=== PATIENT | female | born 1950 | race Caucasian/White ===

== ENCOUNTER 2018-03-21 12:30 | Emergency (ER) | payer OTHER, MEDICARE, SELFPAY ==
[2018-03-21 12:41] VITALS: BP 135/77; PULSE 64; RESP 18; TEMP 36.3; O2SAT 96; BMI 22.1
== END 2018-03-21 14:59 | disposition left against medical advice (07) ==
PROVIDERS: Emergency Provider Nurse Practitioner Family
DX: H57.10 Ocular pain, unspecified eye (principal)
CPT/HCPCS: 99281; 99282

== ENCOUNTER 2018-06-20 11:14 | Emergency (ER) | payer MEDICARE, OTHER, SELFPAY ==
[2018-06-20 11:23] VITALS: BP 130/66; PULSE 57; RESP 18; TEMP 36.7; O2SAT 97
[2018-06-20 12:29] LABS: Add Manual Diff / Slide Review NO; Basophils Absolute Auto 100 /uL (0-100); Basophils Percent Auto 1.1 % (0-2); Eosinophils Absolute Auto 100 /uL (0-450); Eosinophils Percent Auto 2.1 % (2-4); Hematocrit 38.6 % (36-46); Hemoglobin 12.7 g/dL (12.0-16.0); Lymphocytes Absolute Auto 1300 /uL (1100-4500); Lymphocytes Percent Auto 22.1 % (25-40); Mean Corpuscular Hemoglobin 29.8 PG (26-34); Mean Corpuscular Volume 90.3 fL (80-100); Monocytes Absolute Auto 500 /uL (0-900); Monocytes Percent Auto 7.7 % (3-14); Neutrophils Absolute Auto 4100 /uL (1500-7000); Platelet Count 325 X10^3/uL (150-400); Red Blood Cell Count 4.27 X10^6/uL (4.0-5.2); Red Cell Distribution Width 12.4 % (11.6-14.8); White Blood Cell Count 6.1 X10^3/uL (4.5-11.0)
[2018-06-20 12:38] LABS: Prothrombin Time 11.1 SECONDS (10.1-12.7)
[2018-06-20 12:40] LABS: PTT Partial Thromboplastin Tim 28 SECONDS (26.4-36.2)
[2018-06-20 12:42] LABS: Alanine Aminotransferase 21 IU/L (9-52); Albumin 4.1 g/dL (3.5-5.0); Albumin Globulin Ratio 1.5 (1.0-2.8); Alkaline Phosphatase 57 U/L (38-126); Aspartate Aminotransferase 17 IU/L (14-36); BUN Creatinine Ratio 23.3 (6-22); Bilirubin Total 0.4 mg/dL (0.2-1.3); Blood Urea Nitrogen 14 mg/dL (7-17); Calcium 9.2 mg/dL (8.4-10.2); Carbon Dioxide 26 mmol/L (22-32); Chloride 106 mmol/L (98-107); Estimated Glomerular Filt Rate > 60.0 mL/min (>60); Globulin 2.7 g/dL (1.7-4.1); Glucose 82 mg/dL (80-110); HEMOLYSIS < 15 (0-50); Lipase 676 U/L (23-300); Potassium 4.5 mmol/L (3.4-5.1); Sodium 138 mmol/L (137-145); Total Protein 6.8 g/dL (6.3-8.2)
--- NOTE | 2018-06-20 12:50 | ED.ABDPAIN ---
HPI - Abdominal Pain General Chief Complaint: Abdominal Pain Stated Complaint: left side abdominal pain, bloating, pressure Time Seen by Provider: 06/20/18 12:49 Source: patient Mode of arrival: ambulatory Limitations: no limitations History of Present Illness HPI narrative: 67-year-old female comes to the emergency department with complaint of abdominal pain. patient states that she has had pain for 8 or 9 days. She complains of left upper quadrant. She was seen at [place] [address]. She had lab work which showed lactic acid doses, was told that they had suspected diverticulitis and started her on Augmentin. She also had bacteria in urine. She has been taking the Augmentin. She states the pain has not resolved. She denies any fevers, states the pain does sometimes radiate to her back with that she also sometimes just has back spasms. She has had a little bit slower bowel movements but has been pooping. Urinary frequency, urgency under sugar often has resolved. She states she has also been told she has interstitial cystitis. Patient did not have a CT scan or any other imaging at the other facility, she states she deferred because she wanted to see if she improved with the antibiotics. She states she has had multiple visits in the past for abdominal pain. She was at 1 point diagnosed with cervical cancer had that area removed and improved but now she has this new recurrence of pain she states she has probably had 10 CT scans. Patient drinks alcohol occasionally, states sometimes she will have 1 or 2 drinks a couple times a week but that is the most frequent she normally does. Related Data Home Medications Medication Instructions Recorded Confirmed conj estrog-medroxyprogest madiha 1 tab PO DAILY 07/19/17 07/19/17 [Prempro] ibuprofen [Advil] 200 mg PO TID PRN 07/19/17 07/19/17 phenazopyridine [Pyridium] 100 mg PO TID PRN 07/19/17 07/19/17 Previous Rx's Medication Instructions Recorded esomeprazole magnesium [Nexium] 40 mg PO DAILY #30 cap 06/20/18 Allergies Allergy/AdvReac Type Severity Reaction Status Date / Time No Known Drug Allergies Allergy Verified 03/21/18 12:52 Review of Systems Review of Systems ROS Unobtainable: All systems reviewed & are unremarkable except as noted in HPI and below Constitutional Denies chills, Denies fever(s), Denies lethargy and Denies weakness Gastrointestinal Gastrointestinal: Reports abdominal pain, Denies change in bowel habits, Reports constipation (Slower bowel movement), Denies diarrhea, Reports nausea and Denies vomiting Genitourinary Denies hematuria, Denies urinary frequency, Denies dysuria, Denies flank pain and Denies urinary urgency Musculoskeletal Reports back pain (Back spasm) Neurologic Denies weakness [facility] Medical History (Updated 06/20/18 @ 13:25 by Ivy Ardon DO) Diverticulosis (Acute) History of colon polyps (Chronic) Hx of cervical cancer (Resolved) Surgical History (Updated 06/20/18 @ 13:22 by Ivy Ardon DO) Hx of cholecystectomy (Chronic) Social History (Updated 06/20/18 @ 13:23 by Ivy Ardon DO) Smoking Status: Current every day smoker alcohol intake: current substance use type: does not use Social History (Updated 06/20/18 @ 13:23 by Ivy Ardon DO) Smoking Status: Current every day smoker alcohol intake: current substance use type: does not use Exam Narrative Exam Narrative: GENERAL: Alert and oriented x three, thin, well-appearing female HEENT: Head normocephalic, atraumatic, EOMI, pupils reactive, face symmetric, moist mucous membranes NECK: Supple, full range of motion CARDIOVASCULAR: Regular rate and rhythm without murmurs, rubs or gallops. RESPIRATORY: Breath sounds equal bilaterally, no wheezes rales or rhonchi. ABDOMEN: Soft, mild upper abdominal tenderness. Normoactive bowel sounds all 4 quadrants. No guarding or rebound, rigidity, no mass : No CVA tenderness EXTREMITIES: Normal range of motion, no clubbing or edema. Neurovascularly intact NEUROLOGICAL: Cranial nerves II through XII grossly intact. Moving all extremities SKIN: Warm, dry, no petechiae, no rashes or lesions. Initial Vital Signs Initial Vital Signs: Vital Signs Temperature 98.0 F 06/20/18 11:23 Pulse Rate 57 L 06/20/18 11:23 Respiratory Rate 18 06/20/18 11:23 Blood Pressure 130/66 06/20/18 11:23 Pulse Oximetry 97 06/20/18 11:23 Course Orders Ordered: ED Orders 06/20/18 12:20 Complete Blood Count AUTO DIFF Stat Comprehensive Metabolic Panel Stat Lipase Stat Partial Thromboplastin Time Stat Prothrombin Time INR Stat 06/20/18 13:17 US abdomen complete Stat Vital Signs - 8 hr 06/20/18 11:23 06/20/18 14:40 06/20/18 16:02 Temperature 98.0 F Pulse Rate 57 L 53 L 72 Respiratory Rate 18 15 15 Blood Pressure 130/66 Blood Pressure [Right Arm] 142/79 H 141/70 H Pulse Oximetry 97 100 98 MDM - Abdominal Pain Lab Data Attestation: I reviewed the patient's lab results. Result diagrams: 06/20/18 12:20 06/20/18 12:20 Lab Results 06/20/18 06/20/18 06/20/18 Range/Units 12:20 12:20 12:20 WBC 6.1 (4.5-11.0) X10^3/uL RBC 4.27 (4.0-5.2) X10^6/uL Hgb 12.7 (12.0-16.0) g/dL Hct 38.6 (36-46) % MCV 90.3 (80-100) fL MCH 29.8 (26-34) PG MCHC 33.0 (30-36) % RDW 12.4 (11.6-14.8) % Plt Count 325 (150-400) X10^3/uL Neut % (Auto) 67.0 (50-75) % Lymph % (Auto) 22.1 L (25-40) % Hall % (Auto) 7.7 (3-14) % Eos % (Auto) 2.1 (2-4) % Baso % (Auto) 1.1 (0-2) % Neut # (Auto) 4100 (2992-5451) /uL Lymph # (Auto) 1300 (1764-5721) /uL Hall # (Auto) 500 (0-900) /uL Eos # (Auto) 100 (0-450) /uL Baso # (Auto) 100 (0-100) /uL PT 11.1 (10.1-12.7) SECONDS INR 1.0 (0.9-1.3) APTT 28 (26.4-36.2) SECONDS Sodium 138 (137-145) mmol/L Potassium 4.5 (3.4-5.1) mmol/L Chloride 106 (98-107) mmol/L Carbon Dioxide 26 (22-32) mmol/L BUN 14 (7-17) mg/dL Creatinine 0.60 (0.52-1.04) mg/dL Estimated GFR > 60.0 (>60) mL/min BUN/Creatinine Ratio 23.3 H (6-22) Glucose 82 (80-110) mg/dL Calcium 9.2 (8.4-10.2) mg/dL Total Bilirubin 0.4 (0.2-1.3) mg/dL AST 17 (14-36) IU/L ALT 21 (9-52) IU/L Alkaline Phosphatase 57 (38-126) U/L Total Protein 6.8 (6.3-8.2) g/dL Albumin 4.1 (3.5-5.0) g/dL Globulin 2.7 (1.7-4.1) g/dL Albumin/Globulin Ratio 1.5 (1.0-2.8) Lipase 676 H (23-300) U/L Point of care testing: Urine Dip Bedside Urine Glucose Negative Bedside Urine Bilirubin - Negative Bedside Urine Ketone - Negative Urine Specific [place] 1.015 Bedside Urine Occult Blood - Negative Bedside Urine pH 6.0 Bedside Urine Protein - Negative Bedside Urine Urobilinogen - Negative Bedside Urine Nitrite - Negative Bedside Urine Leukocytes - Negative Esterase Imaging Data US - abdomen: Radiologist's impression: [place] [address] Ultrasound Report Signed Patient: Richelle Mclaughlin#: [id number] : 2Acct:[id number] Age/Sex: 67 / FDate of Service: 06/20/18 Loc: ED Accession Number: [id number] Procedure: US abdomen complete Ordering Provider: Ivy Ardon D.O. PROCEDURE: US ABDOMEN COMPLETE INDICATIONS: LEFT UPPER ABD PAIN, ELEVATED LIPASE, HISTORY CHOLECYSTECTOM TECHNIQUE: Real-time scanning was performed of the abdominal and retroperitoneal organs, with image documentation. COMPARISON: None. FINDINGS: Liver: Scattered presumed hepatic cysts, the largest seen in the right lobe measuring 10 mm although several views are too small to characterize. Gallbladder: Surgically absent Biliary ducts: Mild prominence of the bile ducts in the right hepatic lobe. Extrahepatic bile duct caliber measures 9 mm. Normal is 6-7 mm or less in diameter, or 10 mm or less post-cholecystectomy. Pancreas: Visualized portions of the pancreas are sonographically unremarkable. Pancreatic duct measures 3 mm. Spleen: Spleen is normal in size and homogeneous in echotexture. Kidneys: Kidneys are normal in size and echotexture. Right kidney measures 10.6 cm long; left kidney measures 10.8 cm long. No hydronephrosis or nephrolithiasis. No solid masses. Presumed simple appearing bilateral renal cysts measuring up to 2 cm on the right and 1.4 cm on the left Aorta: Visualized aorta is normal in caliber at less than 3 cm. Iliacs: Proximal common iliac arteries are normal in caliber at less than 2.5 cm. IVC: Intrahepatic inferior vena cava is patent. Miscellaneous: No free abdominal fluid. IMPRESSION: Bilateral renal and hepatic cysts. Status post cholecystectomy. Minimal prominence of the right-sided intrahepatic bile ducts although this could be due to cholecystectomy. Dictated by: Cayden Fajardo M.D. on 06/20/2018 at 14:46 Approved by: Cayden Fajardo M.D. on 06/20/2018 at 14:49 [facility] Narrative Medical decision making narrative: Discussed with patient she has been on Augmentin, her urinary symptoms have resolved but she still has abdominal pain. She states mostly on the left side of her abdomen in the upper area although she refers to her entire abdomen also. Lipase is elevated, she does not have a history pancreatitis. She has had her gallbladder out. She has had multiple CT scans a prefers to avoid them if possible, plan for ultrasound to evaluate for choledocholithiasis. Patient refused IV and only had blood work. Her pain is controlled enough at this time she defers any medicine. Blood work shows lipase is elevated showing a pancreatitis. Patient is not having any vomiting. Discussed ultrasound versus CT. Ultrasound shows a normal bile duct size based on prior cholecystectomy, no acute changes to the pancreas. Discussed with patient at length she does not wish to do a CT for any further evaluation. She has had chronic abdominal pain, she has a benign belly exam, she does not have an elevated white count, fevers or other signs of peritonitis. We discussed she can finish the Augmentin as it did seem to help with her urinary symptoms. I told her that I cannot tell her for sure if she has diverticulitis or not or that if it is truly improving or not. I did discuss with Dr. Smallwood she recommended a little bit of Nexium for gastritis possibly as well as clear liquid diet. I discussed with patient at length that she needs to have a clear liquid diet, she needs to avoid all alcohol and that she needs to have follow-up with recheck her lab work in the next 2-3 days. Her significant other was at bedside and also received this information. Discharge Plan Departure Patient Disposition: Home Clinical Impression: Pancreatitis Discharge Date/Time: 06/20/18 16:09 Interventions: ED Discharge Assessment Last Done: 06/20/18 16:09 Instructions: Acute Pancreatitis Activity Restrictions/Additional Instructions: Follow-up in the next 2-3 days for recheck of your lipase level and labs. Call your physician for follow-up. Use the prescription with your chart to have repeat labs done and sent to your physician as an outpatient. Included is contact information for follow-up for Gastroenterology Take Nexium once daily until gone. Clear liquid diet, you may advance her diet to a more normal diet once her pain has subsided. Avoid all alcohol as this can cause pancreatitis. You may take ibuprofen up to 800 mg every 8 hours and/or Tylenol up to a 1000 mg every 8 hours as needed for pain. Return to the ER for fevers greater than 100.4 F, increasing abdominal pain, persistent vomiting, black or bloody stools, new chest pain, shortness of breath or other new or concerning symptoms. Prescriptions: New esomeprazole magnesium [Nexium] 40 mg capsule,delayed release(DR/EC) 40 mg PO DAILY Qty: 30 RF: 0 No Action phenazopyridine [Pyridium] 100 mg Tablet 100 mg PO TID PRN (Reason: Pain (Scale Score 1-3)) RF: 0 ibuprofen [Advil] 200 mg Tablet 200 mg PO TID PRN (Reason: Pain (Scale Score 1-3)) RF: 0 conj estrog-medroxyprogest madiha [Prempro] 0.45-1.5 mg Tablet 1 tab PO DAILY RF: 0 Referrals: Deondre Walton MD [Physician] -
--- NOTE | 2018-06-20 13:17 | DI.US.S_ITS ---
PROCEDURE: US ABDOMEN COMPLETE INDICATIONS: LEFT UPPER ABD PAIN, ELEVATED LIPASE, HISTORY CHOLECYSTECTOM TECHNIQUE: Real-time scanning was performed of the abdominal and retroperitoneal organs, with image documentation. COMPARISON: None. FINDINGS: Liver: Scattered presumed hepatic cysts, the largest seen in the right lobe measuring 10 mm although several views are too small to characterize. Gallbladder: Surgically absent Biliary ducts: Mild prominence of the bile ducts in the right hepatic lobe. Extrahepatic bile duct caliber measures 9 mm. Normal is 6-7 mm or less in diameter, or 10 mm or less post-cholecystectomy. Pancreas: Visualized portions of the pancreas are sonographically unremarkable. Pancreatic duct measures 3 mm. Spleen: Spleen is normal in size and homogeneous in echotexture. Kidneys: Kidneys are normal in size and echotexture. Right kidney measures 10.6 cm long; left kidney measures 10.8 cm long. No hydronephrosis or nephrolithiasis. No solid masses. Presumed simple appearing bilateral renal cysts measuring up to 2 cm on the right and 1.4 cm on the left Aorta: Visualized aorta is normal in caliber at less than 3 cm. Iliacs: Proximal common iliac arteries are normal in caliber at less than 2.5 cm. IVC: Intrahepatic inferior vena cava is patent. Miscellaneous: No free abdominal fluid. IMPRESSION: Bilateral renal and hepatic cysts. Status post cholecystectomy. Minimal prominence of the right-sided intrahepatic bile ducts although this could be due to cholecystectomy. Dictated by: Cayden Fajardo M.D. on 06/20/2018 at 14:46 Approved by: Cayden Fajardo M.D. on 06/20/2018 at 14:49
[2018-06-20 14:40] VITALS: BP 142/79; PULSE 53; RESP 15; O2SAT 100
[2018-06-20 16:02] VITALS: BP 141/70; PULSE 72; RESP 15; O2SAT 98
== END 2018-06-20 16:09 | disposition home or self-care (01) ==
PROVIDERS: Emergency Provider Emergency Medicine
DX: K85.90 Acute pancreatitis without necrosis or infection, unspecified (principal); M54.9 Dorsalgia, unspecified
CPT/HCPCS: 36415; 76700; 80053; 81003; 83690; 85025; 85610; 85730; 99283; 99284

== ENCOUNTER 2018-06-22 12:43 | Emergency (ER) | payer MEDICARE, OTHER, SELFPAY ==
[2018-06-22 12:56] VITALS: BP 124/70; PULSE 67; RESP 18; TEMP 36.9; O2SAT 96
--- NOTE | 2018-06-22 12:56 | ED.ABDPAIN ---
HPI - Abdominal Pain General Chief Complaint: Abdominal Pain Stated Complaint: Pancreatitis, not getting better Time Seen by Provider: 06/22/18 12:53 Source: patient Mode of arrival: ambulatory Limitations: no limitations History of Present Illness HPI narrative: Patient is a 67-year-old female here for evaluation of left-sided abdominal pain. She was seen here in the emergency department a couple days ago and was diagnosed with pancreatitis secondary to a elevation in lipase and left upper quadrant abdominal pain. She states that since that time she has been following the ?? that was prescribed to her however this morning she started have worsening left-sided pain. She is currently on Augmentin for treatment of a urinary tract infection. Patient is concerned today about a ?burst colon ?She states that her ex- had no symptoms except for sudden onset of pain for which he was diagnosed with a ruptured colon and ended up with a colostomy. She states that she has not been eating well recently. She states that she feels like she is bloated. Related Data Home Medications Medication Instructions Recorded Confirmed conj estrog-medroxyprogest madiha 1 tab PO DAILY 07/19/17 06/22/18 [Prempro] ibuprofen [Advil] 200 mg PO TID PRN 07/19/17 06/22/18 phenazopyridine [Pyridium] 100 mg PO TID PRN 07/19/17 06/22/18 amoxicillin-pot clavulanate 1 tab PO BID 06/22/18 06/22/18 [Augmentin] Previous Rx's Medication Instructions Recorded esomeprazole magnesium [Nexium] 40 mg PO DAILY #30 cap 06/20/18 nitrofurantoin monohyd/m-cryst 100 mg PO BID 7 Days #14 cap 06/22/18 [Macrobid] Allergies Allergy/AdvReac Type Severity Reaction Status Date / Time Iodinated Contrast- Oral and Allergy Redness of Verified 06/22/18 13:38 IV Dye Skin Review of Systems Constitutional Denies fever(s) Cardiovascular Denies chest pain and Denies dyspnea Respiratory Denies dyspnea Gastrointestinal Gastrointestinal: Reports abdominal pain, Denies change in stool character and Reports nausea Genitourinary Denies dysuria Musculoskeletal Denies myalgias and Denies arthralgias Integumentary/Breasts Denies rash Hematologic/Lymphatic Denies easy bleeding and Denies easy bruising [facility] Medical History Diverticulosis (Acute) History of colon polyps (Chronic) Hx of cervical cancer (Resolved) Surgical History (Updated 06/20/18 @ 13:22 by Ivy Ardon DO) Hx of cholecystectomy (Chronic) Social History Smoking Status: Current every day smoker alcohol intake: current substance use type: does not use Social History Smoking Status: Current every day smoker alcohol intake: current substance use type: does not use Exam Initial Vital Signs Initial Vital Signs: Vital Signs Temperature 98.5 F 06/22/18 12:56 Pulse Rate 67 06/22/18 12:56 Respiratory Rate 18 06/22/18 12:56 Blood Pressure 124/70 06/22/18 12:56 Pulse Oximetry 96 06/22/18 12:56 Const General: cooperative, healthy appearing, comfortable, well developed, well groomed and No acute distress Orientation: alert, awake and oriented x3 HENMT Head: normal to inspection and normocephalic Resp Effort & Inspection: normal respiratory effort Cardio Rate: regular rate GI Inspection: non-distended Palpation: soft, No firm, No guarding, No mass, No rigid and No tender Skin Lesions: no lesions Rashes: no rashes Neuro General: alert and awake Cognition: normal cognition Speech: speech normal Extrem General: normal to inspection and capillary refill normal Psych Appearance: grossly normal Course Orders Ordered: ED Orders 06/22/18 13:27 Complete Blood Count AUTO DIFF Stat Comprehensive Metabolic Panel Stat Lipase Stat 06/22/18 13:32 CT abdomen pelvis wo con Stat Discontinued Medications Sodium Chloride (Normal Saline 0.9%) 1,000 mls @ 1,000 mls/hr IV BOLUS ONE Stop: 06/22/18 13:54 Last Admin: 06/22/18 13:33 Dose: 1,000 mls/hr Vital Signs - 8 hr 06/22/18 12:56 06/22/18 14:15 Temperature 98.5 F Pulse Rate 67 65 Respiratory Rate 18 17 Blood Pressure 124/70 Blood Pressure [Left Arm] 134/60 Pulse Oximetry 96 97 MDM - Abdominal Pain Lab Data Attestation: I reviewed the patient's lab results. Result diagrams: 06/22/18 13:27 06/22/18 13:27 Lab Results 06/22/18 06/22/18 Range/Units 13:27 13:27 WBC 6.7 (4.5-11.0) X10^3/uL RBC 4.15 (4.0-5.2) X10^6/uL Hgb 12.4 (12.0-16.0) g/dL Hct 37.5 (36-46) % MCV 90.4 (80-100) fL MCH 29.8 (26-34) PG MCHC 33.0 (30-36) % RDW 12.4 (11.6-14.8) % Plt Count 319 (150-400) X10^3/uL Neut % (Auto) 70.3 (50-75) % Lymph % (Auto) 19.4 L (25-40) % [place] % (Auto) 7.2 (3-14) % Eos % (Auto) 2.5 (2-4) % Baso % (Auto) 0.6 (0-2) % Neut # (Auto) 4700 (0898-8349) /uL Lymph # (Auto) 1300 (0879-0793) /uL [place] # (Auto) 500 (0-900) /uL Eos # (Auto) 200 (0-450) /uL Baso # (Auto) 0 (0-100) /uL Sodium 138 (137-145) mmol/L Potassium 4.1 (3.4-5.1) mmol/L Chloride 105 (98-107) mmol/L Carbon Dioxide 24 (22-32) mmol/L BUN 17 (7-17) mg/dL Creatinine 0.60 (0.52-1.04) mg/dL Estimated GFR > 60.0 (>60) mL/min BUN/Creatinine Ratio 28.3 H (6-22) Glucose 84 (80-110) mg/dL Calcium 9.3 (8.4-10.2) mg/dL Total Bilirubin 0.4 (0.2-1.3) mg/dL AST 19 (14-36) IU/L ALT 22 (9-52) IU/L Alkaline Phosphatase 53 (38-126) U/L Total Protein 6.8 (6.3-8.2) g/dL Albumin 4.1 (3.5-5.0) g/dL Globulin 2.7 (1.7-4.1) g/dL Albumin/Globulin Ratio 1.5 (1.0-2.8) Lipase 58 D (23-300) U/L Point of care testing: Urine Dip Bedside Urine Glucose Negative Bedside Urine Bilirubin - Negative Bedside Urine Ketone - Negative Urine Specific [place] 1.030 Bedside Urine Occult Blood - Negative Bedside Urine pH 6.0 Bedside Urine Protein - Negative Bedside Urine Urobilinogen - Negative Bedside Urine Nitrite - Negative Bedside Urine Leukocytes - Negative Esterase Imaging Data CT scan - abdomen: Radiologist's impression: [address] [address] [address] Scan Report Signed Patient: Estrella MclaughlinMR#: [id number] : 2Acct:[id number] Age/Sex: 67 / FDate of Service: 06/22/18 Loc: ED Accession Number: [id number] Procedure: CT abdomen pelvis wo con Ordering Provider: Maykel Hall D.O. PROCEDURE: CT ABDOMEN PELVIS WO CON INDICATIONS: Left-sided abdominal pain TECHNIQUE: After the administration of oral contrast, 5 mm thick sections acquired from the diaphragms to the symphysis. 5 mm coronal and sagittal reformats were performed. For radiation dose reduction, the following was used: automated exposure control, adjustment of mA and/or kV according to patient size. COMPARISON: [facility], US, US ABDOMEN COMPLETE, 06/20/2018, 14:02. [facility], CT, CT ABDOMEN PELVIS W CON, 07/19/2017, 16:07. FINDINGS: Image quality: Diagnostic. ABDOMEN: Lung bases: Lung bases are clear. Heart size is normal. Solid organs: Multiple hypodense lesions within the liver probably represent cysts. Other possibilities difficult to exclude. There appears to be mild intrahepatic and there is moderate extrahepatic biliary dilatation. The common bile duct is noted to measure up to approximately 9 mm in diameter. This the spleen, pancreas, and adrenals are unremarkable. Low attenuation lesion within the right kidney may represent a cyst. There may be parapelvic cysts. Calcification on the inferior margin of the left kidney is noted. There is no hydroureter or definite ureteral calculi. An angiomyolipoma involving the left kidney appears to be present, unchanged. Peritoneum and bowel: There is a small hiatal hernia. The stomach and duodenum are unremarkable. The small bowel loops are nondilated. Nonspecific prominence of the wall of the descending colon is identified (short segment) (image 36, series 2). No surrounding inflammation is evident. Nodes and vessels: No retroperitoneal or mesenteric adenopathy by size criteria. Aorta and inferior vena cava are normal in size. Bones: No ventral hernias. PELVIS: Genitourinary: Bladder wall thickness is normal. The uterus and ovaries do not appear to be enlarged, but are not well characterized without contrast. There may be a nabothian cyst. Miscellaneous: No inguinal hernias or adenopathy. No free fluid or loculated fluid collection is evident. Bones: No suspicious bony lesions. No acute pelvic fractures are identified. IMPRESSION: 1. No definite acute abnormality is appreciated within the abdomen or pelvis. 2. Short segment area of prominence involving the descending colon. This is likely related to peristalsis. However, if there is clinical concern for a bowel lesion, please consider colonoscopy for further evaluation. 3. Small hiatal hernia. 4. Probable hepatic and right renal cysts are not well characterized. 5. Left renal angiomyolipoma. 6. Enlarged common bile duct is similar to the previous exam and likely related to prior cholecystectomy. Dictated by: Suleman Obrien M.D. on 06/22/2018 at 14:17 Approved by: Suleman Obrien M.D. on 06/22/2018 at 14:3 MDM Narrative Medical decision making narrative: Patient states she has had multiple CT scans in the past. She did not have a CT scan the last time that she was here. Does have left-sided pain. Informed her that if she did have diverticulitis that the Augmentin that she is on should treat this. I did inform her that she had a soft abdomen which was not consistent with peritonitis or a bowel obstruction or bowel perforation however she stated that her abdomen was distended. Informed her that the only way to definitively tell if she had a intra-abdominal issue was to do a CT scan. She states the last time that she had IV contrast she had ?itching? afterwards and was ?developing an allergy ?to the contrast. Initially she was refusing the oral contrast stating that it would make her nauseated however after discussion she did opt to drink the oral contrast. Informed her that this would be another CT scan in that my suspicion was low however she was concerned and wanted the CT scan to ?find out ?if there was anything wrong Patient's CT scan today is unremarkable. She reports she has had a colonoscopy within the past year so I suspect that the finding was peristalsis and not a tumor. Her lipase is normal today. She has a benign abdominal exam. Review of her prior urine culture shows that the E coli she had year ago was resistant to Augmentin which she is currently on. This could still be a untreated urinary tract infection. Will switch her to Macrobid. Patient states she is having dysuria. No other emergent condition was found. Her exam is not consistent with pyelonephritis. She was instructed to stop the Augmentin start the Macrobid. 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 She expressed understanding and agreement with plan. Discharge Plan Departure Patient Disposition: Home Clinical Impression: Dysuria Abdominal pain Qualifiers: Abdominal location: left lower quadrant Qualified Code(s): R10.32 - Left lower quadrant pain Instructions: DI for Abdominal Pain-Adult Activity Restrictions/Additional Instructions: I do recommend that you stop the Augmentin and start taking the antibiotic that was prescribed here today. Call your primary care doctor for a follow-up to discuss the indications for specialist referral. Return to the emergency department for any new or worsening symptoms Prescriptions: New nitrofurantoin monohyd/m-cryst [Macrobid] 100 mg capsule 100 mg PO BID 7 Days Qty: 14 RF: 0 No Action phenazopyridine [Pyridium] 100 mg Tablet 100 mg PO TID PRN (Reason: Pain (Scale Score 1-3)) RF: 0 ibuprofen [Advil] 200 mg Tablet 200 mg PO TID PRN (Reason: Pain (Scale Score 1-3)) RF: 0 Prempro 0.45-1.5 mg Tablet 1 tab PO DAILY RF: 0 esomeprazole magnesium [Nexium] 40 mg capsule,delayed release(DR/EC) 40 mg PO DAILY Qty: 30 RF: 0 amoxicillin-pot clavulanate [Augmentin] 500-125 mg Tablet 1 tab PO BID RF: 0
--- NOTE | 2018-06-22 13:32 | DI.CT.S_ITS ---
PROCEDURE: CT ABDOMEN PELVIS WO CON INDICATIONS: Left-sided abdominal pain TECHNIQUE: After the administration of oral contrast, 5 mm thick sections acquired from the diaphragms to the symphysis. 5 mm coronal and sagittal reformats were performed. For radiation dose reduction, the following was used: automated exposure control, adjustment of mA and/or kV according to patient size. COMPARISON: [facility], US, US ABDOMEN COMPLETE, 06/20/2018, 14:02. [facility], CT, CT ABDOMEN PELVIS W CON, 07/19/2017, 16:07. FINDINGS: Image quality: Diagnostic. ABDOMEN: Lung bases: Lung bases are clear. Heart size is normal. Solid organs: Multiple hypodense lesions within the liver probably represent cysts. Other possibilities difficult to exclude. There appears to be mild intrahepatic and there is moderate extrahepatic biliary dilatation. The common bile duct is noted to measure up to approximately 9 mm in diameter. This the spleen, pancreas, and adrenals are unremarkable. Low attenuation lesion within the right kidney may represent a cyst. There may be parapelvic cysts. Calcification on the inferior margin of the left kidney is noted. There is no hydroureter or definite ureteral calculi. An angiomyolipoma involving the left kidney appears to be present, unchanged. Peritoneum and bowel: There is a small hiatal hernia. The stomach and duodenum are unremarkable. The small bowel loops are nondilated. Nonspecific prominence of the wall of the descending colon is identified (short segment) (image 36, series 2). No surrounding inflammation is evident. Nodes and vessels: No retroperitoneal or mesenteric adenopathy by size criteria. Aorta and inferior vena cava are normal in size. Bones: No ventral hernias. PELVIS: Genitourinary: Bladder wall thickness is normal. The uterus and ovaries do not appear to be enlarged, but are not well characterized without contrast. There may be a nabothian cyst. Miscellaneous: No inguinal hernias or adenopathy. No free fluid or loculated fluid collection is evident. Bones: No suspicious bony lesions. No acute pelvic fractures are identified. IMPRESSION: 1. No definite acute abnormality is appreciated within the abdomen or pelvis. 2. Short segment area of prominence involving the descending colon. This is likely related to peristalsis. However, if there is clinical concern for a bowel lesion, please consider colonoscopy for further evaluation. 3. Small hiatal hernia. 4. Probable hepatic and right renal cysts are not well characterized. 5. Left renal angiomyolipoma. 6. Enlarged common bile duct is similar to the previous exam and likely related to prior cholecystectomy. Dictated by: Suleman Obrien M.D. on 06/22/2018 at 14:17 Approved by: Suleman Obrien M.D. on 06/22/2018 at 14:32
[2018-06-22] MEDS: SODIUM CHLORIDE 0.9% 1,000 ML 1000 ML IV (13:33)
[2018-06-22 13:37] LABS: Add Manual Diff / Slide Review NO; Basophils Absolute Auto 0 /uL (0-100); Basophils Percent Auto 0.6 % (0-2); Eosinophils Absolute Auto 200 /uL (0-450); Eosinophils Percent Auto 2.5 % (2-4); Hematocrit 37.5 % (36-46); Hemoglobin 12.4 g/dL (12.0-16.0); Lymphocytes Absolute Auto 1300 /uL (1100-4500); Lymphocytes Percent Auto 19.4 % (25-40); Mean Corpuscular Hemoglobin 29.8 PG (26-34); Mean Corpuscular Volume 90.4 fL (80-100); Monocytes Absolute Auto 500 /uL (0-900); Monocytes Percent Auto 7.2 % (3-14); Neutrophils Absolute Auto 4700 /uL (1500-7000); Neutrophils Percent Auto 70.3 % (50-75); Platelet Count 319 X10^3/uL (150-400); Red Blood Cell Count 4.15 X10^6/uL (4.0-5.2); Red Cell Distribution Width 12.4 % (11.6-14.8); White Blood Cell Count 6.7 X10^3/uL (4.5-11.0)
[2018-06-22 14:03] LABS: Alanine Aminotransferase 22 IU/L (9-52); Albumin 4.1 g/dL (3.5-5.0); Albumin Globulin Ratio 1.5 (1.0-2.8); Alkaline Phosphatase 53 U/L (38-126); Aspartate Aminotransferase 19 IU/L (14-36); BUN Creatinine Ratio 28.3 (6-22); Bilirubin Total 0.4 mg/dL (0.2-1.3); Blood Urea Nitrogen 17 mg/dL (7-17); Calcium 9.3 mg/dL (8.4-10.2); Carbon Dioxide 24 mmol/L (22-32); Chloride 105 mmol/L (98-107); Estimated Glomerular Filt Rate > 60.0 mL/min (>60); Globulin 2.7 g/dL (1.7-4.1); Glucose 84 mg/dL (80-110); HEMOLYSIS < 15 (0-50); Lipase 58 U/L (23-300); Potassium 4.1 mmol/L (3.4-5.1); Sodium 138 mmol/L (137-145); Total Protein 6.8 g/dL (6.3-8.2)
[2018-06-22 14:15] VITALS: BP 134/60; PULSE 65; RESP 17; O2SAT 97
[2018-06-22 16:08] VITALS: BP 138/58; PULSE 63; RESP 18; O2SAT 99
== END 2018-06-22 16:10 | disposition home or self-care (01) ==
PROVIDERS: Emergency Provider Emergency Medicine
DX: R30.0 Dysuria (principal); R10.32 Left lower quadrant pain
CPT/HCPCS: 36591; 74176; 80053; 81003; 83690; 85025; 96360; 96361; 99283; 99285